=== PATIENT | female | born 1990 | race American Indian/Alaskan Native ===

== ENCOUNTER 2020-12-31 03:55 | Emergency (ER) | payer MEDICAID ==
[2020-12-31 04:15] VITALS: BP 126/79
[2020-12-31 04:33] LABS: HCG Qualitative,Urine Positive (Negative)
[2020-12-31 04:47] LABS: Hematocrit 32.2 % (30.3-42.9); Hemoglobin 11.1 gm/dl (10.1-14.3); Mean Corpuscular HGB Conc 35 % (30-34); Mean Corpuscular Volume 99 fl (79-97); Platelet Count 332 K/mm3 (140-440); Red Blood Count 3.27 M/mm3 (3.65-5.03)
[2020-12-31 05:05] LABS: Blood Urea Nitrogen 8 mg/dL (7-17); Calcium 9.4 mg/dL (8.4-10.2); Hemolysis Index 1
[2020-12-31 05:06] LABS: BUN/Creatinine Ratio 13
[2020-12-31] MEDS ORDERED: ACETAMINOPHEN 325 MG TAB PO ONE (05:44)
[2020-12-31] MEDS ORDERED: diphenhydrAMINE 25 MG CAP PO ONE (05:44)
--- NOTE | 2020-12-31 05:59 | Emergency Department Report ---
ED Dizziness HPI - General Chief Complaint: Dizziness Stated Complaint: DIZZINES;22WKS Time Seen by Provider: 12/31/20 05:45 Source: patient Mode of arrival: Ambulatory Limitations: No Limitations - History of Present Illness Initial Comments: Patient 30-year-old female who is A0 , currentl y 22 weeks who presents for intermittent dizziness sinus pain and pressure for 3 days. Patient denies shortness of breath there is no nausea vomiting there is no vaginal bleeding there is no abdominal pain. There is no sore throat there is some ear pressure. Symptoms are rated at 3/10. Symptoms are exacerbated by activity and movement. Symptoms are relieved by nothing tried. Patient works at night which exacerbates symptoms. Patient presented to ED via self, alert and oriented x 3, ambulatory with steady gait and nad. MD Complaint: dizziness - Related Data Previous Rx's Medication Instructions Recorded Last Taken Type Acetaminophen 650 mg PO Q6H PRN #30 capsule 12/31/20 Unknown Rx Loratadine 10 mg PO DAILY #30 capsule 12/31/20 Unknown Rx predniSONE [Deltasone] 20 mg PO QDAY 5 Days #5 tab 12/31/20 Unknown Rx Allergies Allergy/AdvReac Type Severity Reaction Status Date / Time No Known Allergies Allergy Unverified 12/31/20 04:12 ED Review of Systems ROS: Stated complaint: DIZZINES;22WKS Other details as noted in HPI Constitutional: denies: chills, fever Eyes: denies: eye pain, eye discharge, vision change ENT: ear pain, congestion, other (sinus pressure ) Respiratory: denies: cough, shortness of breath, wheezing Cardiovascular: denies: chest pain, palpitations Endocrine: no symptoms reported Gastrointestinal: denies: abdominal pain, nausea, vomiting, diarrhea Genitourinary: denies: urgency, dysuria, discharge Musculoskeletal: denies: back pain, joint swelling, arthralgia Skin: denies: rash, lesions Neurological: vertigo. denies: headache, weakness, paresthesias Psychiatric: denies: anxiety, depression Hematological/Lymphatic: denies: easy bleeding, easy bruising ED Past Medical Hx - Past Medical History Previous Medical History?: No - Surgical History Past Surgical History?: Yes Additional Surgical History: Belly button - Medications Home Medications: Home Medications Medication Instructions Recorded Confirmed Last Taken Type Acetaminophen 650 mg PO Q6H PRN #30 capsule 12/31/20 Unknown Rx Loratadine 10 mg PO DAILY #30 capsule 12/31/20 Unknown Rx predniSONE [Deltasone] 20 mg PO QDAY 5 Days #5 tab 12/31/20 Unknown Rx ED Physical Exam - General Limitations: No Limitations General appearance: alert, in no apparent distress - Head Head exam: Present: atraumatic, normocephalic - Eye Eye exam: Present: PERRL, EOMI. Absent: conjunctival injection, nystagmus Pupils: Present: normal accommodation - ENT ENT exam: Present: mucous membranes moist, TM's normal bilaterally, normal exte rnal ear exam, other (turbinates boggy clear post nasal drip , sinus pain bilat maxillary and frontal, TMs clear bilat airwap patent no lesion no exudate no swelling uvula midline ) - Neck Neck exam: Present: normal inspection, full ROM, lymphadenopathy. Absent: tenderness, meningismus, thyromegaly - Respiratory Respiratory exam: Present: normal lung sounds bilaterally. Absent: respiratory distress, wheezes, stridor, chest wall tenderness - Cardiovascular Cardiovascular Exam: Present: regular rate, normal rhythm, normal heart sounds. Absent: systolic murmur, diastolic murmur, rubs, gallop - GI/Abdominal GI/Abdominal exam: Present: soft, normal bowel sounds. Absent: distended, tenderness - Rectal Rectal exam: Present: deferred - Extremities Exam Extremities exam: Present: normal inspection, full ROM, normal capillary refill. Absent: tenderness, pedal edema - Back Exam Back exam: Present: normal inspection, full ROM. Absent: tenderness, CVA tenderness (R), CVA tenderness (L) - Neurological Exam Neurological exam: Present: alert, oriented X3, CN II-XII intact, normal gait, motor sensory deficit, reflexes normal - Expanded Neurological Exam Expanded Patient oriented to: Present: person, place, time Speech: Present: fluid speech Motor strength exam: RUE: 5, LUE: 5, RLE: 5, LLE: 5 Best Eye Response ([place]): (4) open spontaneously Best Motor Response ([place]): (6) obeys commands Best Verbal Response ([place]): (5) oriented [place] Total: 15 - Psychiatric Psychiatric exam: Present: normal affect, normal mood - Skin Skin exam: Present: warm, dry, intact, normal color. Absent: rash ED Course Vital Signs 12/31/20 04:12 Temperature 98.6 F Pulse Rate 86 Respiratory 15 Rate Blood Pressure 126/79 O2 Sat by Pulse 100 Oximetry ED Medical Decision Making - Lab Data Result diagrams: 12/31/20 04:30 12/31/20 04:30 Labs 12/31/20 12/31/20 12/31/20 04:26 04:30 04:30 WBC 10.2 RBC 3.27 L Hgb 11.1 Hct 32.2 MCV 99 H MCH 34 H MCHC 35 H RDW 13.0 L Plt Count 332 Sodium 136 L Potassium 4.1 Chloride 101.6 Carbon Dioxide 23 Anion Gap 16 BUN 8 Creatinine 0.6 Estimated GFR > 60 BUN/Creatinine Ratio 13 Glucose 73 Calcium 9.4 Urine HCG, Qual Positive A - EKG Data EKG shows normal: sinus rhythm Rate: normal - EKG Data When compared to previous EKG there are: other (no previous ekg on record) Interpretation: normal EKG (NSR no ST Elevated HI Interp by ed attending ) - Medical Decision Making This is likely allergic rhinitis,, plan, loratadine, Tylenol as needed, short burst steroids, follow-up with primary care doctor in 2 to 3 days follow-up with [facility] as scheduled. Return to ED should symptoms worsen. Patient verbalized agreement and understanding with discharge plan. Patient DC'd home in stable condition at this time. Critical care attestation.: If time is entered above; I have spent that time in minutes in the direct care of this critically ill patient, excluding procedure time. ED Disposition Clinical Impression: Dizziness Allergic rhinitis Qualifiers: Allergic rhinitis trigger: unspecified Allergic rhinitis seasonality: unspecified Qualified Code(s): J30.9 - Allergic rhinitis, unspecified Disposition: DC-01 TO HOME OR SELFCARE Is pt being admited?: No Does the pt Need Aspirin: No Condition: Stable Instructions: Allergic Rhinitis, Adult, [id number], Dizziness, [id number], Rehydration, Adult Additional Instructions: take medications a prescribed, follow up with your doctor in 2-3 days, follow up with your OBGYN in 2-3 days. Return to emergency of symptoms worsen. Prescriptions: Acetaminophen 650 mg PO Q6H PRN #30 capsule PRN Reason: Pain , Severe (7-10) predniSONE [Deltasone] 20 mg PO QDAY 5 Days #5 tab Loratadine 10 mg PO DAILY #30 capsule Referrals: AMILCAR CARVER MD [Staff Physician] - 3-5 Days ERIC HOYT MD [Staff Physician] - 3-5 Days Forms: Work/School Release Form(ED) Time of Disposition: 06:06
--- NOTE | 2021-01-01 11:58 | Electrocardiograph Report ---
[facility] Test Date: 2020-12-31 Test Time: 04:59:42 Pat Name: GLOYR ISABEL Department: Room: Gender: F Hatcher[employer] Man: SOPHIA : 1990 Requested By: MATT MARTIN Order Number: [id number] Reading MD: Oskar Alonzo Measurements Intervals [place] Rate: 83 P: 45 AL: 150 QRS: 44 QRSD: 70 T: 19 QT: 371 QTc: 436 Interpretive Statements Sinus rhythm Anteroseptal infarct, age indeterminate No previous ECG available for comparison Electronically Signed On 01-01-2021 11:58:32 EDT by Oskar Alonzo
== END 2020-12-31 06:25 | disposition home or self-care (01) ==
LOC: ED 03:55
DX: R42 Dizziness and giddiness (principal); J30.9 Allergic rhinitis, unspecified; Z79.899 Other long term (current) drug therapy
CPT/HCPCS: 36415; 80048; 81025; 85027; 93005; 99283